=== PATIENT | female | born 1975 | race American Indian/Alaskan Native ===

== ENCOUNTER 2016-11-23 08:42 | Emergency (ER) | payer SELFPAY ==
[2016-11-23 08:56] VITALS: BP 114/70
[2016-11-23 09:33] LABS: Bacteria,Urine 1+ /HPF (Negative); Bilirubin,Urine NEG (Negative); Blood,Urine NEG (Negative); Ketones,Urine TR mg/dL (Negative); Leukocyte Esterase,Urine NEG (Negative); Mucus,Urine 3+ /HPF; Nitrite,Urine NEG (Negative); Protein,Urine <15 mg/dL mg/dL (Negative)
--- NOTE | 2016-11-23 11:15 | Emergency Department Report ---
HPI - General Chief Complaint: Urogenital-Female Time Seen by Provider: 11/23/16 11:08 - HPI HPI: This is a 41-year-old female presents to ED complaining of vaginal foul odor for the past week. Patient states she is unsure there is a tampon stuck in her vagina or condom. Patient states she recently just had her menstrual period started November 19 - November 21. Patient denies any vaginal discharge, dysuria. Patient also admits history of hemorrhoids and she uses rectal cream. She denies fevers/chills/nausea/vomiting/abdominal pain/shortness of breath or any other problems. ED Past Medical Hx - Past Medical History Previous Medical History?: No Additional medical history: Vaginal delivery 1994 - Surgical History Past Surgical History?: No - Social History Smoking Status: Former Smoker Substance Use Type: Alcohol, Non Opiate Pain, Prescribed ED Review of Systems ROS: Stated complaint: PELVIC PAIN Other details as noted in HPI Constitutional: denies: chills, fever Eyes: denies: eye pain, eye discharge, vision change ENT: denies: ear pain, throat pain Respiratory: denies: cough, shortness of breath, wheezing Cardiovascular: denies: chest pain, palpitations Endocrine: no symptoms reported Gastrointestinal: denies: abdominal pain, nausea, diarrhea Genitourinary: denies: urgency, dysuria, discharge Musculoskeletal: denies: back pain, joint swelling, arthralgia Skin: denies: rash, lesions Neurological: denies: headache, weakness, paresthesias Psychiatric: denies: anxiety, depression Hematological/Lymphatic: denies: easy bleeding, easy bruising Physical Exam - Physical Exam Vital Signs: Vital Signs 11/23/16 08:51 Temperature 97.7 F Pulse Rate 69 Respiratory 20 Rate Blood Pressure 114/70 O2 Sat by Pulse 100 Oximetry Physical Exam: GENERAL: Alert and oriented x3, no apparent distress, Normal Gait, atraumatic. HEAD: Head is normocephalic and a-traumatic. LUNGS: Symetrical with respiration, No wheezing, no rales or crackles, CTAB. HEART: S1, S2 present, regular rate and rhythm without murmur, no rubs, no gallops. ABDOMEN: No organomegaly was noted,Positive bowel sounds, soft, and non- distended. . Nontender to palpation on all Quadrants, NO CVA tenderness. GENITOURINARY: External genitalia without erythema, exudate or discharge. Vaginal vault is without discharge. There was brown dark foreign object possibly temporary in vault. Foreign object removed with ring forceps. Cervix is of normal color without lesion. Cervical os is closed. No bleeding noted. Uterus is noted to be of normal size and nontender. No cervical motion tenderness. No masses are palpated. The adnexa are without masses or tenderness. EXTREMITIES/MUSCULOSKELETAL: No cyanosis, clubbing, rash, lesions or edema. Full ROM bilaterally. UE/LE Pulses 2+ bilaterally. LE and UE 5+ strength bilaterally, straight leg raise negative bilaterally SKIN: Warm and dry, No lesions, No ulceration or induration present. ED Course Vital Signs 11/23/16 08:51 Temperature 97.7 F Pulse Rate 69 Respiratory 20 Rate Blood Pressure 114/70 O2 Sat by Pulse 100 Oximetry ED Medical Decision Making - Medical Decision Making 41-year-old female presents with an body in the vagina Course: mal odourous Foreign body removed without complication Discussed the patient proper tampon use Discussed the patient to follow up with her [employer] doctor. Fire signs are normal patient is in no acute distress patient felt much better. Critical care attestation.: If time is entered above; I have spent that time in minutes in the direct care of this critically ill patient, excluding procedure time. ED Disposition Clinical Impression: Foreign body of vagina Qualifiers: Encounter type: initial encounter Qualified Code(s): T19.2XXA - Foreign body in vulva and vagina, initial encounter Disposition: DISCHARGED TO HOME OR SELFCARE Is pt being admited?: No Does the pt Need Aspirin: No Condition: Stable Additional Instructions: Always remove tampons from vaginal after use Referrals: PRIMARY CARE, [Primary Care Provider] - 3-5 Days [facility] [Outside] - 3-5 Days [facility] [Outside] - 3-5 Days Time of Disposition: 11:44
== END 2016-11-23 12:00 | disposition home or self-care (01) ==
LOC: ED 08:42
DX: T19.2XXA Foreign body in vulva and vagina, initial encounter (principal); Z87.891 Personal history of nicotine dependence; X58.XXXA Exposure to other specified factors, initial encounter; Y93.89 Activity, other specified; Y99.8 Other external cause status; Y92.89 Other specified places as the place of occurrence of the external cause
CPT/HCPCS: 81001; 81025; 99283